=== PATIENT | female | born 1950 | race Caucasian/White ===

== ENCOUNTER → 2023-11-23 14:58 | Outpatient (REF) | payer OTHER, SELFPAY | LOC: WDC 14:58 | PROVIDERS: ATTENDING PHYSICIAN Family Medicine | DX: Z12.31 Encounter for screening mammogram for malignant neoplasm of breast (principal); M81.0 Age-related osteoporosis without current pathological fracture | CPT/HCPCS: 77063; 77067; 77080 ==

== ENCOUNTER → 2023-11-30 09:49 | Outpatient (REF) | payer OTHER, SELFPAY | LOC: WDC 09:49 | PROVIDERS: ATTENDING PHYSICIAN Family Medicine | DX: R92.8 Other abnormal and inconclusive findings on diagnostic imaging of breast (principal) | CPT/HCPCS: 76642 ==

== ENCOUNTER 2023-12-13 13:04 | Outpatient (RCR) | payer OTHER, SELFPAY | END 2023-12-13 23:59 | disposition home or self-care (01) | LOC: RPT 13:04 | PROVIDERS: ATTENDING PHYSICIAN Family Medicine | DX: R53.81 Other malaise (principal); R26.2 Difficulty in walking, not elsewhere classified; M62.81 Muscle weakness (generalized); Z73.6 Limitation of activities due to disability | CPT/HCPCS: 97110; 97116; 97163; 97530 ==

== ENCOUNTER 2024-01-10 11:00 | Outpatient (RCR) | payer OTHER, SELFPAY | END 2024-01-10 23:59 | disposition home or self-care (01) | LOC: RPT 11:00 | PROVIDERS: ATTENDING PHYSICIAN Family Medicine | DX: R53.81 Other malaise (principal); Z73.6 Limitation of activities due to disability; R26.2 Difficulty in walking, not elsewhere classified; M62.81 Muscle weakness (generalized); R42 Dizziness and giddiness | CPT/HCPCS: 97110; 97112; 97116; 97530 ==

== ENCOUNTER 2024-02-04 13:49 | Outpatient (RCR) | payer OTHER, SELFPAY | END 2024-02-07 07:27 | disposition home or self-care (01) | LOC: RPT 13:49 | PROVIDERS: ATTENDING PHYSICIAN Family Medicine | DX: R53.81 Other malaise (principal); Z73.6 Limitation of activities due to disability; R26.2 Difficulty in walking, not elsewhere classified; M62.81 Muscle weakness (generalized); R42 Dizziness and giddiness | CPT/HCPCS: 97110; 97112; 97116; 97530 ==

== ENCOUNTER 2024-02-13 06:47 | Day surgery (SDC) | payer OTHER, SELFPAY ==
[2024-02-13 08:05] VITALS: BMI 32.6
[2024-02-13 08:14] VITALS: BMI 32.6
[2024-02-13 08:15] LABS: Glucose - Point of Care 143 mg/dl (70-99)
[2024-02-13 08:16] VITALS: BP 130/85
[2024-02-13 10:45] VITALS: BP 151/70
[2024-02-13 11:00] VITALS: BP 153/47
[2024-02-13 11:15] VITALS: BP 172/84
[2024-02-13 11:18] LABS: Glucose - Point of Care 115 mg/dl (70-99)
== END 2024-02-13 11:34 | disposition home or self-care (01) ==
LOC: GI 06:47
PROVIDERS: ATTENDING PHYSICIAN Internal Medicine
DX: Z12.11 Encounter for screening for malignant neoplasm of colon (principal); R19.5 Other fecal abnormalities; K64.9 Unspecified hemorrhoids; K57.30 Diverticulosis of large intestine without perforation or abscess without bleeding; K62.1 Rectal polyp; D12.0 Benign neoplasm of cecum; D12.3 Benign neoplasm of transverse colon; D12.5 Benign neoplasm of sigmoid colon; D12.7 Benign neoplasm of rectosigmoid junction
CPT/HCPCS: 45385; 45380; 88305; 82962

== ENCOUNTER → 2024-11-24 14:58 | Outpatient (REF) | payer OTHER, SELFPAY | LOC: WDC 14:58 | PROVIDERS: ATTENDING PHYSICIAN Family Medicine | DX: Z12.31 Encounter for screening mammogram for malignant neoplasm of breast (principal) | CPT/HCPCS: 77063; 77067 ==

== ENCOUNTER → 2024-11-27 12:48 | Outpatient (REF) | payer OTHER, SELFPAY | LOC: RCS 12:48 | PROVIDERS: ATTENDING PHYSICIAN Internal Medicine Cardiovascular Disease; FAMILY PHYSICIAN Family Medicine | DX: I10 Essential (primary) hypertension (principal); R60.0 Localized edema | CPT/HCPCS: 93306; Q9950 ==